=== PATIENT | male | born 1955 | race Caucasian/White ===

== ENCOUNTER 2018-01-23 19:00 | Inpatient (IN) | payer MEDICAID ==
[2018-01-23 22:35] LABS: ADD MAN DIFF? NO
[2018-01-23 22:37] LABS: WHITE BLOOD COUNT 18.2 10^3/ul (4.8-10.8)
[2018-01-23 22:37] LABS: BASOPHILS % 0.2 % (0.0-2.0); EOSINOPHILS % 0.1 % (0.0-7.0); HEMATOCRIT 42.3 % (42.0-52.0); HEMOGLOBIN 14.9 g/dl (14.0-18.0); LYMPHOCYTES # 0.7 10^3/ul (0.8-2.9); LYMPHOCYTES % 3.9 % (15.0-51.0); MEAN CORPUSCULAR HEMOGLOBIN 31.5 pg (29.0-33.0); MEAN CORPUSCULAR HGB CONC 35.2 g/dl (32.0-37.0); MEAN CORPUSCULAR VOLUME 89.4 fl (82.0-101.0); MONOCYTE # 1.2 10^3/ul (0.3-0.9); MONOCYTES % 6.8 % (0.0-11.0); NEUTROPHILS % 87.9 % (39.0-77.0); PLATELET COUNT 171 10^3/UL (140-415); RED BLOOD COUNT 4.73 10^6/ul (4.70-6.10); RED CELL DISTRIBUTION WIDTH 13.4 % (11.5-14.5)
[2018-01-23 22:42] LABS: ADD UMIC YES; UR ASCORBIC ACID NEGATIVE (NEGATIVE); UR BACTERIA FEW /HPF (NONE SEEN); UR BILIRUBIN (Dip) NEGATIVE (NEGATIVE); UR BLOOD (Dip) 3+ mg/dL (NEGATIVE); UR CLARITY CLOUDY (CLEAR); UR COLOR YELLOW (YELLOW); UR GLUCOSE (Dip) NEGATIVE (NEGATIVE); UR KETONES (Dip) NEGATIVE (NEGATIVE); UR LEUKOCYTE ESTERASE (Dip) 3+ Leu/ul (NEGATIVE); UR NITRITE (Dip) NEGATIVE (NEGATIVE); UR NONSQUAMOUS EPITHELIAL CELL 1 /HPF (NONE SEEN); UR RBC 27 /HPF (0-5); UR TOTAL PROTEIN (Dip) 1+ mg/dl (NEGATIVE); UR UROBILINOGEN (Dip) NEGATIVE (NEGATIVE); UR WBC > 182 /HPF (0-5)
[2018-01-23 22:54] LABS: ALANINE AMINOTRANSFERASE 21 IU/L (13-69); ALBUMIN 2.3 g/dl (3.3-4.9); ALBUMIN/GLOBULIN RATIO 0.71; ALKALINE PHOSPHATASE 113 IU/L (42-121); ANION GAP 13 (5-13); ASPARTATE AMINO TRANSFERASE 66 IU/L (15-46); BILIRUBIN,INDIRECT 0.2 mg/dl (0-1.1); BILIRUBIN,TOTAL 0.2 mg/dl (0.2-1.3); BLOOD UREA NITROGEN 54 mg/dl (7-20); CALCIUM 8.1 mg/dl (8.4-10.2); CARBON DIOXIDE 20 mmol/L (21-31); CHLORIDE 101 mmol/L (97-110); CREATININE 1.62 mg/dl (0.61-1.24); Estimated GFR 43 mL/min (>60); GLUCOSE 194 mg/dl (70-220); POTASSIUM 3.4 mmol/L (3.5-5.1); SODIUM 134 mmol/L (135-144); TOTAL PROTEIN 5.5 g/dl (6.1-8.1)
[2018-01-23] MEDS: CEFTRIAXONE 1 GM/50 ML (PMX) 50 ML IVPB (23:13)
[2018-01-23] MEDS: SODIUM CHLORIDE 0.9% 1L BAG IV* (23:13)
[2018-01-23] MEDS: SOD CHLORIDE 0.9% 500 ML IV (23:14)
[2018-01-24] MEDS ORDERED: ACETAMINOPHEN 325 MG TAB PO ×2 (00:30→03:30)
[2018-01-24] MEDS ORDERED: ONDANSETRON 4 MG INJ IV ×2 (00:30→03:30)
[2018-01-24 03:16] LABS: LACTIC ACID 1.3 mmol/L (0.5-2.0)
[2018-01-24] MEDS: SOD CHLORIDE 0.9% 1,000 ML IV ×3 (03:19→14:10)
[2018-01-24] MEDS: HYDROCODONE/APAP (5/325) TAB PO ×2 (03:19→09:21)
[2018-01-24] MEDS ORDERED: HYDROCODONE/APAP (5/325) TAB PO (03:30)
[2018-01-24] MEDS ORDERED: NACL 0.9% 3 ML SYG IV (03:30)
[2018-01-24 05:14] LABS: ADD MAN DIFF? NO
[2018-01-24 05:21] LABS: BASOPHILS % 0.2 % (0.0-2.0); EOSINOPHILS % 0.2 % (0.0-7.0); HEMATOCRIT 39.8 % (42.0-52.0); HEMOGLOBIN 13.9 g/dl (14.0-18.0); LYMPHOCYTES # 0.6 10^3/ul (0.8-2.9); LYMPHOCYTES % 3.4 % (15.0-51.0); MEAN CORPUSCULAR HEMOGLOBIN 30.9 pg (29.0-33.0); MEAN CORPUSCULAR HGB CONC 34.9 g/dl (32.0-37.0); MEAN CORPUSCULAR VOLUME 88.4 fl (82.0-101.0); MEAN PLATELET VOLUME 10.1 fl (7.4-10.4); MONOCYTE # 1.5 10^3/ul (0.3-0.9); MONOCYTES % 8.3 % (0.0-11.0); NEUTROPHIL # 15.5 10^3/ul (1.6-7.5); NEUTROPHILS % 86.6 % (39.0-77.0); PLATELET COUNT 174 10^3/UL (140-415); RED CELL DISTRIBUTION WIDTH 13.4 % (11.5-14.5)
[2018-01-24 05:21] LABS: WHITE BLOOD COUNT 17.9 10^3/ul (4.8-10.8)
[2018-01-24 05:49] LABS: ALANINE AMINOTRANSFERASE 28 IU/L (13-69); ALBUMIN 1.9 g/dl (3.3-4.9); ALKALINE PHOSPHATASE 108 IU/L (42-121); ANION GAP 10 (5-13); ASPARTATE AMINO TRANSFERASE 40 IU/L (15-46); BILIRUBIN,INDIRECT 0.1 mg/dl (0-1.1); BILIRUBIN,TOTAL 0.1 mg/dl (0.2-1.3); BLOOD UREA NITROGEN 45 mg/dl (7-20); CALCIUM 7.7 mg/dl (8.4-10.2); CARBON DIOXIDE 19 mmol/L (21-31); CHLORIDE 108 mmol/L (97-110); CREATININE 1.39 mg/dl (0.61-1.24); Estimated GFR 51 mL/min (>60); GLUCOSE 185 mg/dl (70-220); POTASSIUM 3.1 mmol/L (3.5-5.1); SODIUM 137 mmol/L (135-144); TOTAL PROTEIN 4.6 g/dl (6.1-8.1)
[2018-01-24] MEDS ORDERED: ADENOSINE 3 MG/ML SYRINGE IV (07:00)
[2018-01-24] MEDS ORDERED: HEPARIN 5,000 UNIT/0.5 ML VIAL (08:21)
[2018-01-24] MEDS: CEFTRIAXONE 1 GM/50 ML (PMX) 50 ML IVPB ×2 (08:51→20:22)
[2018-01-24] MEDS: ASPIRIN (EC) 81 MG TAB PO (08:51)
[2018-01-24] MEDS: HEPARIN SODIUM 5,000 UNIT/ML VIAL SC (08:53)
[2018-01-24] MEDS ORDERED: HEPARIN SODIUM 5,000 UNIT/ML VIAL SC (09:00)
[2018-01-24 15:53] LABS: B-TYPE NATRIURETIC PEPTIDE 1300 PG/ML (0-125)
[2018-01-24 16:14] LABS: THYROID STIMULATING HORMONE 0.386 MIU/L (0.465-4.680)
[2018-01-24] MEDS: ADENOSINE 6 MG INJ IV ×2 (16:27→16:28)
[2018-01-24] MEDS: MAGNESIUM SULFATE 2 GM/50 ML 50 ML IVPB (16:41)
[2018-01-24 17:14] LABS: TROPONIN-I < 0.012 ng/ml (0.000-0.120)
[2018-01-24] MEDS: POTASSIUM CHLORIDE 100 ML IVPB ×2 (19:00→20:52)
[2018-01-24] MEDS: HYDROCODONE/APAP (10/325) TAB PO (20:22)
[2018-01-24] MEDS: SENNA/DOCUSATE NA (8.6MG/50MG) TAB PO (20:50)
[2018-01-24] MEDS: ENOXAPARIN 60 MG/0.6 ML SYG SC (20:51)
[2018-01-24 23:19] LABS: TROPONIN-I < 0.012 ng/ml (0.000-0.120)
[2018-01-24] MEDS: POTASSIUM CHLORIDE (SR) 20 MEQ TAB PO (23:23)
[2018-01-25] MEDS: SENNA/DOCUSATE NA (8.6MG/50MG) TAB PO ×2 (06:35→20:54)
[2018-01-25] MEDS: SOD CHLORIDE 0.9% 1,000 ML IV ×3 (06:41→21:02)
[2018-01-25 07:01] LABS: ADD MAN DIFF? NO
[2018-01-25 07:12] LABS: WHITE BLOOD COUNT 14.3 10^3/ul (4.8-10.8)
[2018-01-25 07:12] LABS: BASOPHILS % 0.1 % (0.0-2.0); EOSINOPHILS # 0.1 10^3/ul (0.0-0.5); EOSINOPHILS % 0.9 % (0.0-7.0); HEMATOCRIT 40.6 % (42.0-52.0); HEMOGLOBIN 13.9 g/dl (14.0-18.0); LYMPHOCYTES # 1.2 10^3/ul (0.8-2.9); LYMPHOCYTES % 8.3 % (15.0-51.0); MEAN CORPUSCULAR HGB CONC 34.2 g/dl (32.0-37.0); MEAN CORPUSCULAR VOLUME 90.4 fl (82.0-101.0); MEAN PLATELET VOLUME 9.6 fl (7.4-10.4); MONOCYTE # 1.4 10^3/ul (0.3-0.9); MONOCYTES % 9.5 % (0.0-11.0); NEUTROPHIL # 11.4 10^3/ul (1.6-7.5); NEUTROPHILS % 79.7 % (39.0-77.0); PLATELET COUNT 230 10^3/UL (140-415); RED BLOOD COUNT 4.49 10^6/ul (4.70-6.10); RED CELL DISTRIBUTION WIDTH 13.8 % (11.5-14.5)
[2018-01-25 07:43] LABS: MAGNESIUM 2.5 mg/dl (1.7-2.5)
[2018-01-25 07:43] LABS: PHOSPHORUS 2.3 mg/dl (2.5-4.9)
[2018-01-25 08:02] LABS: TROPONIN-I < 0.012 ng/ml (0.000-0.120)
[2018-01-25 08:12] LABS: ALANINE AMINOTRANSFERASE 22 IU/L (13-69); ALBUMIN 1.6 g/dl (3.3-4.9); ALBUMIN/GLOBULIN RATIO 0.64; ALKALINE PHOSPHATASE 100 IU/L (42-121); ANION GAP 8 (5-13); ASPARTATE AMINO TRANSFERASE 24 IU/L (15-46); BLOOD UREA NITROGEN 24 mg/dl (7-20); CALCIUM 7.7 mg/dl (8.4-10.2); CARBON DIOXIDE 19 mmol/L (21-31); CHLORIDE 114 mmol/L (97-110); CREATININE 1.13 mg/dl (0.61-1.24); Estimated GFR > 60 mL/min (>60); GLUCOSE 126 mg/dl (70-220); POTASSIUM 4.3 mmol/L (3.5-5.1); SODIUM 141 mmol/L (135-144); TOTAL PROTEIN 4.1 g/dl (6.1-8.1)
[2018-01-25] MEDS: ASPIRIN (EC) 81 MG TAB PO (09:55)
[2018-01-25] MEDS: HYDROCODONE/APAP (10/325) TAB PO ×3 (09:55→20:53)
[2018-01-25] MEDS: CEFTRIAXONE 1 GM/50 ML (PMX) 50 ML IVPB ×2 (09:55→20:53)
[2018-01-25] MEDS: ENOXAPARIN 60 MG/0.6 ML SYG SC ×2 (10:01→20:54)
[2018-01-25] MEDS ORDERED: ALBUTEROL HFA 8 GM INHALER INH (15:00)
[2018-01-26] MEDS: HYDROCODONE/APAP (10/325) TAB PO ×3 (07:04→22:07)
[2018-01-26] MEDS: ASPIRIN (EC) 81 MG TAB PO (09:14)
[2018-01-26] MEDS: CEFTRIAXONE 1 GM/50 ML (PMX) 50 ML IVPB ×2 (09:17→20:49)
[2018-01-26] MEDS: ENOXAPARIN 60 MG/0.6 ML SYG SC ×2 (10:18→21:02)
[2018-01-26] MEDS: BENAZEPRIL 10 MG TAB PO (20:49)
[2018-01-26] MEDS: NICOTINE (7 MG/24 HR) PATCH TRANSDERM (20:50)
[2018-01-26] MEDS: SENNA/DOCUSATE NA (8.6MG/50MG) TAB PO (21:00)
[2018-01-27] MEDS: HYDROCODONE/APAP (10/325) TAB PO ×2 (04:53→10:05)
[2018-01-27 09:14] LABS: ADD MAN DIFF? NO
[2018-01-27 09:18] LABS: WHITE BLOOD COUNT 11.3 10^3/ul (4.8-10.8)
[2018-01-27 09:18] LABS: BASOPHILS % 0.4 % (0.0-2.0); EOSINOPHILS # 0.2 10^3/ul (0.0-0.5); EOSINOPHILS % 1.6 % (0.0-7.0); HEMATOCRIT 40.8 % (42.0-52.0); HEMOGLOBIN 13.7 g/dl (14.0-18.0); LYMPHOCYTES # 1.2 10^3/ul (0.8-2.9); LYMPHOCYTES % 10.7 % (15.0-51.0); MEAN CORPUSCULAR HEMOGLOBIN 30.6 pg (29.0-33.0); MEAN CORPUSCULAR HGB CONC 33.6 g/dl (32.0-37.0); MEAN CORPUSCULAR VOLUME 91.1 fl (82.0-101.0); MEAN PLATELET VOLUME 9.3 fl (7.4-10.4); MONOCYTE # 1.2 10^3/ul (0.3-0.9); MONOCYTES % 10.9 % (0.0-11.0); NEUTROPHIL # 8.5 10^3/ul (1.6-7.5); NEUTROPHILS % 75.2 % (39.0-77.0); PLATELET COUNT 317 10^3/UL (140-415); RED BLOOD COUNT 4.48 10^6/ul (4.70-6.10); RED CELL DISTRIBUTION WIDTH 14.1 % (11.5-14.5)
[2018-01-27 09:39] LABS: ALANINE AMINOTRANSFERASE 32 IU/L (13-69); ALBUMIN/GLOBULIN RATIO 0.71; ALKALINE PHOSPHATASE 106 IU/L (42-121); ANION GAP 8 (5-13); ASPARTATE AMINO TRANSFERASE 45 IU/L (15-46); BILIRUBIN,INDIRECT 0.2 mg/dl (0-1.1); BILIRUBIN,TOTAL 0.2 mg/dl (0.2-1.3); BLOOD UREA NITROGEN 12 mg/dl (7-20); CALCIUM 7.8 mg/dl (8.4-10.2); CARBON DIOXIDE 21 mmol/L (21-31); CHLORIDE 112 mmol/L (97-110); CREATININE 0.86 mg/dl (0.61-1.24); Estimated GFR > 60 mL/min (>60); GLUCOSE 102 mg/dl (70-220); POTASSIUM 3.8 mmol/L (3.5-5.1); SODIUM 141 mmol/L (135-144); TOTAL PROTEIN 4.8 g/dl (6.1-8.1)
[2018-01-27] MEDS: CEFTRIAXONE 1 GM/50 ML (PMX) 50 ML IVPB (09:39)
[2018-01-27] MEDS: ASPIRIN (EC) 81 MG TAB PO (09:39)
[2018-01-27] MEDS: BENAZEPRIL 10 MG TAB PO (09:40)
[2018-01-27] MEDS: FUROSEMIDE 20 MG TAB PO (09:40)
[2018-01-27] MEDS: NICOTINE (7 MG/24 HR) PATCH TRANSDERM (09:40)
[2018-01-27 09:43] LABS: PHOSPHORUS 3.5 mg/dl (2.5-4.9)
[2018-01-27 09:43] LABS: MAGNESIUM 1.8 mg/dl (1.7-2.5)
[2018-01-27] MEDS: ENOXAPARIN 60 MG/0.6 ML SYG SC (10:04)
== END 2018-01-27 16:58 | disposition home or self-care (01) | DRG 872 ==
LOC: E/R 19:00 → PP2 01-24 00:14 → TEL 01-24 15:42
DX: A41.9 Sepsis, unspecified organism (principal); N12 Tubulo-interstitial nephritis, not specified as acute or chronic; I47.1 Supraventricular tachycardia; I42.9 Cardiomyopathy, unspecified; N17.9 Acute kidney failure, unspecified; N39.0 Urinary tract infection, site not specified; I11.0 Hypertensive heart disease with heart failure; I50.9 Heart failure, unspecified; I48.2 Chronic atrial fibrillation; N20.0 Calculus of kidney; J44.9 Chronic obstructive pulmonary disease, unspecified; F17.200 Nicotine dependence, unspecified, uncomplicated; R00.1 Bradycardia, unspecified; B96.20 Unspecified Escherichia coli [E. coli] as the cause of diseases classified elsewhere; B18.2 Chronic viral hepatitis C; Z86.19 Personal history of other infectious and parasitic diseases
CPT/HCPCS: 36415; 71045; 74018; 76775; 80053; 81001; 82962; 83605; 83735; 83880; 84100; 84443; 84484; 85025; 87040; 87086; 90686; 93005; 93306; 96374; 99291-25